=== PATIENT | female | born 1980 | race Caucasian/White ===

== ENCOUNTER 2021-02-06 23:35 | Emergency (ER) | payer OTHER ==
[~2021-02-06 23:35] MED LIST: MACROBID 100 M100 MG PO
[2021-02-07 00:36] LABS: HEMOGLOBIN 13.2 gm/dl (12.3-15.3); RED BLOOD COUNT 4.54 M/UL (4.00-5.10); WHITE BLOOD COUNT 12.3 K/UL (4.5-11.0)
[2021-02-07 01:01] LABS: BUN/CREATININE RATIO 12 (0-10)
== END 2021-02-07 04:45 | disposition home or self-care (01) ==
LOC: ER1 23:35
PROVIDERS: Physician Assistant
DX: R07.9 Chest pain, unspecified (principal); R06.02 Shortness of breath; R11.0 Nausea; F17.200 Nicotine dependence, unspecified, uncomplicated
CPT/HCPCS: 71045; 80053; 82550; 82553; 83874; 84484; 85025; 93005; 96374; 99285